=== PATIENT | male | born 1960 | race Caucasian/White ===

== ENCOUNTER 2022-09-03 12:54 | Inpatient (IN) | payer MEDICAID, OTHER ==
[~2022-09-03] VITALS: Ht 177.8 cm; Wt 91.2 kg
[~2022-09-03 12:54] MED LIST: BACI120O TP; BUSP10TA23 PO; FLUO40CA7 PO; HALO100A IM; HALO10TA20 PO; PREG75 PO; QUET300T2 PO; TRIH5TAB4 PO
[2022-09-03] MEDS ORDERED: SODIUM CHLORIDE 0.9% 1,000 ML IV ONE (13:30)
[2022-09-03 13:46] LABS: BASOPHILS % (AUTO) 1.4 % (0.0-2.0); EOSINOPHILS % (AUTO) 3.2 % (1.0-6.0); HEMATOCRIT 42.8 % (41-53); HEMOGLOBIN 14.1 g/dL (13.5-17.5); LYMPHOCYTES # (AUTO) 1.5 K/uL (1.0-4.8); LYMPHOCYTES % (AUTO) 18.4 % (22.0-44.0); MEAN CORPUSCULAR VOLUME 85 fL (80-100); MONOCYTES # (AUTO) 0.9 K/uL (0.1-1.0); MONOCYTES % (AUTO) 11.3 % (2.0-9.0); NEUTROPHILS # (AUTO) 5.2 K/uL (1.8-7.7); NEUTROPHILS % (AUTO) 65.7 % (40.0-70.0); PLATELET COUNT (AUTO) 264 K/uL (150-450); RED BLOOD CELL COUNT(AUTO) 5.05 MIL/uL (4.50-5.90); RED CELL DISTRIBUTION WIDTH 15.7 % (11.5-14.5)
[2022-09-03] MEDS ORDERED: DOXE100C30 PO (13:52)
[2022-09-03] MEDS ORDERED: FOLI-130 PO (13:52)
[2022-09-03] MEDS ORDERED: FINA-27 PO (13:52)
[2022-09-03] MEDS ORDERED: PALI1.5T7 PO (13:52)
[2022-09-03] MEDS ORDERED: CARV6 PO (13:52)
[2022-09-03] MEDS ORDERED: METF-1211 PO (13:52)
[2022-09-03] MEDS ORDERED: BUSP15 PO (13:52)
[2022-09-03] MEDS ORDERED: OMEP20 PO (13:52)
[2022-09-03] MEDS ORDERED: LOSA-382 PO (13:52)
[2022-09-03] MEDS ORDERED: RISP2TAB45 PO (13:52)
[2022-09-03] MEDS ORDERED: INSU100C6 SQ (13:52)
[2022-09-03] MEDS ORDERED: AMLO-257 PO (13:52)
[2022-09-03] MEDS ORDERED: ROSU20TA73 PO (13:52)
[2022-09-03] MEDS ORDERED: FLUT16SP NASAL (13:52)
[2022-09-03] MEDS ORDERED: OXYB5TAB20 PO (13:52)
[2022-09-03] MEDS ORDERED: TAMS-13 PO (13:52)
[2022-09-03 13:58] LABS: ANION GAP 4 mmol/L (8-16); CALCIUM, TOTAL 9.6 mg/dL (8.8-10.5); CARBON DIOXIDE 31 mmol/L (22-29); CHLORIDE 99 mmol/L (98-107); CREATININE 0.96 mg/dL (0.60-1.30); GLOMERULAR FILTR. RATE CALC > 60 mL/min (>60); GLUCOSE,RANDOM 367 mg/dL (70-110); POTASSIUM 4.1 mmol/L (3.5-5.1); SODIUM SERUM 134 mmol/L (136-145); UREA NITROGEN, BLOOD 16 mg/dL (7-18)
[2022-09-03 14:03] LABS: ALANINE AMINOTRANSFERASE 40 U/L (12-78); ALBUMIN 3.6 g/dL (3.4-5.0); ALKALINE PHOSPHATASE 176 U/L (46-116); ASPARTATE AMINOTRANSFERASE 15 U/L (15-37); BILIRUBIN,TOTAL 0.4 mg/dL (0.1-1.0); TOTAL PROTEIN, SERUM 7.7 g/dL (6.4-8.2)
[2022-09-03 14:10] LABS: APPEARANCE,URINE CLEAR (CLEAR); BILIRUBIN,URINE NEGATIVE (NEGATIVE); GLUCOSE, URINE (UA) >=1000 mg/dL (NEGATIVE); KETONES,URINE NEGATIVE (NEGATIVE); LEUKOCYTE ESTERASE ,URINE NEGATIVE (NEGATIVE); NITRATE,URINE NEGATIVE (NEGATIVE); OCCULT BLOOD,URINE NEGATIVE (NEGATIVE); PROTEIN,URINE NEGATIVE (NEGATIVE); SPECIFIC GRAVITIY, URINE 1.007 (1.003-1.030); UROBILINOGEN,URINE <=1.0 mg/dL (<=1.0)
[2022-09-03 14:31] LABS: BACTERIA,URINE None Seen /HPF (None Seen); RBC,URINE None Seen /HPF (0-2); WBC,URINE None Seen /HPF (0-5)
[2022-09-03] MEDS ORDERED: LORazepam 2 MG/ML VIAL IM ONE ×2 (14:45→17:30)
[2022-09-03] MEDS ORDERED: DiphenhydrAMINE HCL 50 MG/ML VIAL IM ONE (14:45)
[2022-09-03] MEDS ORDERED: HALOPERIDOL LACTATE 5 MG/ML VIAL IM ONE (14:45)
[2022-09-03 16:58] LABS: COVID AG,FIA SOURCE NASAL SWAB
[2022-09-03] MEDS ORDERED: DEXTROSE 50%-WATER 25 GM/50 ML SYRINGE IVP PRN (17:00)
[2022-09-03] MEDS: INSULIN LISPRO 100 UNITS/ML SQ PRN ×2 (17:10→21:00)
[2022-09-03 21:07] LABS: GLUCOMETER DEV NAME(LOC) ERT.5; GLUCOSE,POINT OF CARE 204 MG/DL (70-110)
[2022-09-04] MEDS ORDERED: GLUCAGON,HUMAN RECOMBINANT 1 MG VIAL IM PRN (00:15)
[2022-09-04 00:36] VITALS: BP 131/86
[2022-09-04 06:26] LABS: GLUCOMETER DEV NAME(LOC) BV3N.; GLUCOSE,POINT OF CARE 273 MG/DL (70-110)
[2022-09-04] MEDS: INSULIN LISPRO 100 UNITS/ML SQ PRN ×3 (06:29→20:58)
[2022-09-04 08:44] VITALS: BP 134/73
[2022-09-04 09:44] LABS: CHOL/HDL RATIO 1.8 (4.2-7.3); FREE T4 (FREE THYROXINE) 1.27 ng/dL (0.76-1.46); THYROID STIMULATING HORMONE 0.88 uIU/mL (0.36-3.74)
[2022-09-04] MEDS ORDERED: PALIPERIDONE PALMITATE 234 MG/1.5 ML SYRINGE IM SCH (10:30)
[2022-09-04] MEDS ORDERED: INSULIN LISPRO 100 UNITS/ML SQ ONE (11:00)
[2022-09-04 11:08] LABS: AMPHET/METH SCREEN,URINE NEGATIVE (NEGATIVE); BARBITURATE SCREEN, URINE NEGATIVE (NEGATIVE); BENZODIAZEPINES SCREEN,URINE NEGATIVE (NEGATIVE); CANNABINOID SCREEN,URINE NEGATIVE (NEGATIVE); COCAINE SCREEN,URINE NEGATIVE (NEGATIVE); METHADONE SCREEN, URINE NEGATIVE (NEGATIVE); OPIATE SCREEN,URINE NEGATIVE (NEGATIVE)
[2022-09-04 11:11] LABS: GLUCOMETER DEV NAME(LOC) BV3N.; GLUCOSE,POINT OF CARE 584 MG/DL (70-110)
[2022-09-04 11:27] LABS: PHENCYCLIDINE SCREEN,URINE NEGATIVE (NEGATIVE)
[2022-09-04] MEDS: BusPIRone HCL 10 MG TABLET PO SCH ×2 (12:10→16:09)
[2022-09-04 12:46] LABS: GLUCOMETER DEV NAME(LOC) BV3N.; GLUCOSE,POINT OF CARE 474 MG/DL (70-110)
[2022-09-04] MEDS: LORazepam 2 MG TABLET PO PRN (15:53)
[2022-09-04] MEDS: HALOPERIDOL 5 MG TABLET PO PRN (15:53)
[2022-09-04] MEDS: GlipiZIDE 5 MG TABLET PO SCH (16:09)
[2022-09-04 16:31] LABS: GLUCOMETER DEV NAME(LOC) BV3N.; GLUCOSE,POINT OF CARE 358 MG/DL (70-110)
[2022-09-04 20:18] VITALS: BP 127/73
[2022-09-04] MEDS: BusPIRone HCL 15 MG TABLET PO SCH (20:44)
[2022-09-04] MEDS: DOXEPIN HCL 100 MG CAPSULE PO SCH (20:44)
[2022-09-04 21:06] LABS: GLUCOMETER DEV NAME(LOC) BV3N.; GLUCOSE,POINT OF CARE 193 MG/DL (70-110)
[2022-09-05 06:16] LABS: GLUCOMETER DEV NAME(LOC) BV3N.; GLUCOSE,POINT OF CARE 274 MG/DL (70-110)
[2022-09-05] MEDS: GlipiZIDE 5 MG TABLET PO SCH ×2 (06:38→16:18)
[2022-09-05] MEDS: INSULIN LISPRO 100 UNITS/ML SQ PRN ×4 (06:43→20:30)
[2022-09-05] MEDS: BusPIRone HCL 10 MG TABLET PO SCH ×3 (08:17→16:18)
[2022-09-05 09:59] VITALS: BP 136/80
[2022-09-05 11:21] LABS: GLUCOMETER DEV NAME(LOC) BV3N.; GLUCOSE,POINT OF CARE 414 MG/DL (70-110)
[2022-09-05] MEDS ORDERED: INSULIN LISPRO 100 UNITS/ML SQ ONE (11:45)
[2022-09-05 16:41] LABS: GLUCOMETER DEV NAME(LOC) BV3N.; GLUCOSE,POINT OF CARE 279 MG/DL (70-110)
[2022-09-05 20:03] VITALS: BP 140/80
[2022-09-05] MEDS: BusPIRone HCL 15 MG TABLET PO SCH (20:35)
[2022-09-05] MEDS: DOXEPIN HCL 100 MG CAPSULE PO SCH (20:35)
[2022-09-05 20:51] LABS: GLUCOMETER DEV NAME(LOC) BV3N.; GLUCOSE,POINT OF CARE 301 MG/DL (70-110)
[2022-09-05] MEDS: ZOLPIDEM TARTRATE 10 MG TABLET PO PRN (21:33)
[2022-09-06] MEDS: GlipiZIDE 5 MG TABLET PO SCH ×2 (06:22→16:40)
[2022-09-06 06:26] LABS: GLUCOMETER DEV NAME(LOC) BV3N.; GLUCOSE,POINT OF CARE 314 MG/DL (70-110)
[2022-09-06] MEDS: INSULIN LISPRO 100 UNITS/ML SQ PRN ×4 (06:31→21:26)
[2022-09-06 08:12] VITALS: BP 144/76
[2022-09-06] MEDS: BusPIRone HCL 10 MG TABLET PO SCH ×3 (08:33→16:40)
[2022-09-06 11:36] LABS: GLUCOMETER DEV NAME(LOC) BV3N.; GLUCOSE,POINT OF CARE 416 MG/DL (70-110)
[2022-09-06 11:56] LABS: GLUCOMETER DEV NAME(LOC) BV3S.; GLUCOSE,POINT OF CARE 351 MG/DL (70-110)
[2022-09-06 17:11] LABS: GLUCOMETER DEV NAME(LOC) BV3S.; GLUCOSE,POINT OF CARE 354 MG/DL (70-110)
[2022-09-06 20:21] VITALS: BP 145/83
[2022-09-06 20:51] LABS: GLUCOMETER DEV NAME(LOC) BV3N.; GLUCOSE,POINT OF CARE 358 MG/DL (70-110)
[2022-09-06] MEDS: BusPIRone HCL 15 MG TABLET PO SCH (21:23)
[2022-09-06] MEDS: ZOLPIDEM TARTRATE 10 MG TABLET PO PRN (21:24)
[2022-09-06] MEDS: DOXEPIN HCL 100 MG CAPSULE PO SCH (21:24)
[2022-09-07] MEDS: GlipiZIDE 5 MG TABLET PO SCH ×2 (06:16→16:18)
[2022-09-07 06:21] LABS: GLUCOMETER DEV NAME(LOC) BV3N.; GLUCOSE,POINT OF CARE 270 MG/DL (70-110)
[2022-09-07] MEDS: INSULIN LISPRO 100 UNITS/ML SQ PRN ×3 (06:34→20:55)
[2022-09-07 08:43] VITALS: BP 172/64
[2022-09-07] MEDS: BusPIRone HCL 10 MG TABLET PO SCH ×3 (08:43→16:18)
[2022-09-07] MEDS ORDERED: INSULIN LISPRO 100 UNITS/ML SQ ONE (11:30)
[2022-09-07] MEDS ORDERED: GLUCAGON,HUMAN RECOMBINANT 1 MG VIAL IM PRN (11:30)
[2022-09-07 14:31] LABS: GLUCOMETER DEV NAME(LOC) BV3S.; GLUCOSE,POINT OF CARE 569 MG/DL (70-110)
[2022-09-07 14:31] LABS: GLUCOMETER DEV NAME(LOC) BV3S.; GLUCOSE,POINT OF CARE 324 MG/DL (70-110)
[2022-09-07 14:31] LABS: GLUCOMETER DEV NAME(LOC) BV3S.; GLUCOSE,POINT OF CARE 426 MG/DL (70-110)
[2022-09-07] MEDS: INSULIN GLARGINE,HUM.REC.ANLOG 100 UNITS/ML SQ SCH (16:23)
[2022-09-07 17:11] LABS: GLUCOMETER DEV NAME(LOC) BV3N.; GLUCOSE,POINT OF CARE 250 MG/DL (70-110)
[2022-09-07 20:17] VITALS: BP 145/83
[2022-09-07] MEDS: LORazepam 2 MG TABLET PO PRN (20:32)
[2022-09-07 21:31] LABS: GLUCOMETER DEV NAME(LOC) BV3N.; GLUCOSE,POINT OF CARE 358 MG/DL (70-110)
[2022-09-07] MEDS: BusPIRone HCL 15 MG TABLET PO SCH (21:38)
[2022-09-07] MEDS: DOXEPIN HCL 100 MG CAPSULE PO SCH (21:38)
[2022-09-08] MEDS: GlipiZIDE 5 MG TABLET PO SCH ×2 (06:31→16:32)
[2022-09-08 06:32] LABS: GLUCOMETER DEV NAME(LOC) BV3N.; GLUCOSE,POINT OF CARE 298 MG/DL (70-110)
[2022-09-08] MEDS: INSULIN LISPRO 100 UNITS/ML SQ PRN ×4 (06:34→20:37)
[2022-09-08 08:33] VITALS: BP 133/84
[2022-09-08] MEDS: BusPIRone HCL 10 MG TABLET PO SCH ×3 (08:38→16:32)
[2022-09-08] MEDS: INSULIN GLARGINE,HUM.REC.ANLOG 100 UNITS/ML SQ SCH ×2 (08:44→17:10)
[2022-09-08 11:51] LABS: GLUCOMETER DEV NAME(LOC) BV3N.; GLUCOSE,POINT OF CARE 362 MG/DL (70-110)
[2022-09-08 17:01] LABS: GLUCOMETER DEV NAME(LOC) BV3N.; GLUCOSE,POINT OF CARE 412 MG/DL (70-110)
[2022-09-08 20:03] VITALS: BP 140/78
[2022-09-08] MEDS: BusPIRone HCL 15 MG TABLET PO SCH (20:04)
[2022-09-08] MEDS: DOXEPIN HCL 100 MG CAPSULE PO SCH (20:04)
[2022-09-08 20:40] LABS: GLUCOMETER DEV NAME(LOC) BV3N.; GLUCOSE,POINT OF CARE 335 MG/DL (70-110)
[2022-09-08] MEDS: ZOLPIDEM TARTRATE 10 MG TABLET PO PRN (22:40)
[2022-09-09] MEDS: GlipiZIDE 5 MG TABLET PO SCH ×2 (06:41→16:50)
[2022-09-09] MEDS: INSULIN LISPRO 100 UNITS/ML SQ PRN ×3 (06:46→16:53)
[2022-09-09 07:06] LABS: GLUCOMETER DEV NAME(LOC) BV3N.; GLUCOSE,POINT OF CARE 313 MG/DL (70-110)
[2022-09-09 08:17] VITALS: BP 134/89
[2022-09-09] MEDS: BusPIRone HCL 10 MG TABLET PO SCH ×3 (08:17→16:50)
[2022-09-09] MEDS: INSULIN GLARGINE,HUM.REC.ANLOG 100 UNITS/ML SQ SCH ×2 (08:22→16:53)
[2022-09-09 11:21] LABS: GLUCOMETER DEV NAME(LOC) BV3N.; GLUCOSE,POINT OF CARE 411 MG/DL (70-110)
[2022-09-09] MEDS: LORazepam 2 MG TABLET PO PRN (16:50)
[2022-09-09] MEDS: HALOPERIDOL 5 MG TABLET PO PRN (16:50)
[2022-09-09 17:11] LABS: GLUCOMETER DEV NAME(LOC) BV3N.; GLUCOSE,POINT OF CARE 366 MG/DL (70-110)
[2022-09-09] MEDS: BusPIRone HCL 15 MG TABLET PO SCH (20:15)
[2022-09-09] MEDS: ZOLPIDEM TARTRATE 10 MG TABLET PO PRN (20:15)
[2022-09-09] MEDS: DOXEPIN HCL 100 MG CAPSULE PO SCH (20:15)
[2022-09-09 20:16] VITALS: BP 142/84
[2022-09-09] MEDS ORDERED: INSULIN LISPRO 100 UNITS/ML SQ ONE (20:30)
[2022-09-09 20:40] LABS: GLUCOMETER DEV NAME(LOC) BV3N.; GLUCOSE,POINT OF CARE 468 MG/DL (70-110)
[2022-09-10] MEDS: GlipiZIDE 5 MG TABLET PO SCH ×2 (06:08→16:26)
[2022-09-10 06:21] LABS: GLUCOMETER DEV NAME(LOC) BV3N.; GLUCOSE,POINT OF CARE 283 MG/DL (70-110)
[2022-09-10] MEDS: INSULIN LISPRO 100 UNITS/ML SQ PRN ×3 (06:39→16:44)
[2022-09-10] MEDS: BusPIRone HCL 10 MG TABLET PO SCH ×3 (08:28→16:26)
[2022-09-10] MEDS: INSULIN GLARGINE,HUM.REC.ANLOG 100 UNITS/ML SQ SCH ×2 (08:33→16:43)
[2022-09-10 08:38] VITALS: BP 122/75
[2022-09-10] MEDS: RisperiDONE 2 MG TABLET PO SCH ×2 (10:26→20:09)
[2022-09-10 11:27] LABS: GLUCOMETER DEV NAME(LOC) BV3N.; GLUCOSE,POINT OF CARE 376 MG/DL (70-110)
[2022-09-10] MEDS: HALOPERIDOL 5 MG TABLET PO PRN (16:26)
[2022-09-10] MEDS: LORazepam 2 MG TABLET PO PRN (16:26)
[2022-09-10 17:06] LABS: GLUCOMETER DEV NAME(LOC) BV3N.; GLUCOSE,POINT OF CARE 361 MG/DL (70-110)
[2022-09-10 18:32] LABS: GLUCOMETER DEV NAME(LOC) POC.BV
[2022-09-10] MEDS: ZOLPIDEM TARTRATE 10 MG TABLET PO PRN (20:09)
[2022-09-10] MEDS: BusPIRone HCL 15 MG TABLET PO SCH (20:09)
[2022-09-10] MEDS: DOXEPIN HCL 100 MG CAPSULE PO SCH (20:10)
[2022-09-10 20:15] VITALS: BP 150/85
[2022-09-10] MEDS ORDERED: INSULIN LISPRO 100 UNITS/ML SQ ONE (20:30)
[2022-09-10 20:40] LABS: GLUCOMETER DEV NAME(LOC) BV3N.; GLUCOSE,POINT OF CARE 421 MG/DL (70-110)
[2022-09-11] MEDS: GlipiZIDE 5 MG TABLET PO SCH ×2 (06:25→16:27)
[2022-09-11 06:26] LABS: GLUCOMETER DEV NAME(LOC) BV3N.; GLUCOSE,POINT OF CARE 369 MG/DL (70-110)
[2022-09-11] MEDS: INSULIN LISPRO 100 UNITS/ML SQ PRN ×4 (06:27→20:28)
[2022-09-11] MEDS: BusPIRone HCL 10 MG TABLET PO SCH ×3 (08:53→16:27)
[2022-09-11] MEDS: RisperiDONE 2 MG TABLET PO SCH ×2 (08:53→20:48)
[2022-09-11] MEDS: INSULIN GLARGINE,HUM.REC.ANLOG 100 UNITS/ML SQ SCH ×2 (08:56→16:41)
[2022-09-11 09:38] VITALS: BP 134/89
[2022-09-11 11:22] LABS: GLUCOMETER DEV NAME(LOC) BV3N.; GLUCOSE,POINT OF CARE 343 MG/DL (70-110)
[2022-09-11] MEDS: HALOPERIDOL 5 MG TABLET PO PRN (16:31)
[2022-09-11 17:06] LABS: GLUCOMETER DEV NAME(LOC) BV3N.; GLUCOSE,POINT OF CARE 350 MG/DL (70-110)
[2022-09-11 20:26] LABS: GLUCOMETER DEV NAME(LOC) BV3N.; GLUCOSE,POINT OF CARE 308 MG/DL (70-110)
[2022-09-11 20:34] VITALS: BP 151/86
[2022-09-11] MEDS: BusPIRone HCL 15 MG TABLET PO SCH (20:48)
[2022-09-11] MEDS: DOXEPIN HCL 100 MG CAPSULE PO SCH (20:48)
[2022-09-12 06:27] LABS: GLUCOMETER DEV NAME(LOC) BV3N.; GLUCOSE,POINT OF CARE 282 MG/DL (70-110)
[2022-09-12] MEDS: GlipiZIDE 5 MG TABLET PO SCH ×2 (06:44→16:32)
[2022-09-12] MEDS: INSULIN LISPRO 100 UNITS/ML SQ PRN ×4 (06:46→20:36)
[2022-09-12 08:20] VITALS: BP 128/76
[2022-09-12] MEDS: RisperiDONE 2 MG TABLET PO SCH ×2 (08:42→20:37)
[2022-09-12] MEDS: BusPIRone HCL 10 MG TABLET PO SCH ×3 (08:42→16:32)
[2022-09-12] MEDS: INSULIN GLARGINE,HUM.REC.ANLOG 100 UNITS/ML SQ SCH ×2 (08:45→16:39)
[2022-09-12 11:51] LABS: GLUCOMETER DEV NAME(LOC) BV3N.; GLUCOSE,POINT OF CARE 315 MG/DL (70-110)
[2022-09-12 16:31] LABS: GLUCOMETER DEV NAME(LOC) BV3N.; GLUCOSE,POINT OF CARE 373 MG/DL (70-110)
[2022-09-12] MEDS: LORazepam 2 MG TABLET PO PRN (19:18)
[2022-09-12 20:26] LABS: GLUCOMETER DEV NAME(LOC) BV3N.; GLUCOSE,POINT OF CARE 354 MG/DL (70-110)
[2022-09-12] MEDS: BusPIRone HCL 15 MG TABLET PO SCH (20:37)
[2022-09-12] MEDS: DOXEPIN HCL 100 MG CAPSULE PO SCH (20:38)
[2022-09-12 20:48] VITALS: BP 143/81
[2022-09-13] MEDS: GlipiZIDE 5 MG TABLET PO SCH ×2 (06:16→16:24)
[2022-09-13 06:31] LABS: GLUCOMETER DEV NAME(LOC) BV3N.; GLUCOSE,POINT OF CARE 268 MG/DL (70-110)
[2022-09-13] MEDS: INSULIN LISPRO 100 UNITS/ML SQ PRN ×4 (06:32→20:32)
[2022-09-13 08:18] VITALS: BP 142/87
[2022-09-13] MEDS: BusPIRone HCL 10 MG TABLET PO SCH ×3 (09:08→16:24)
[2022-09-13] MEDS: RisperiDONE 2 MG TABLET PO SCH ×2 (09:08→20:31)
[2022-09-13] MEDS: INSULIN GLARGINE,HUM.REC.ANLOG 100 UNITS/ML SQ SCH ×2 (09:10→16:28)
[2022-09-13 12:01] LABS: GLUCOMETER DEV NAME(LOC) BV3N.; GLUCOSE,POINT OF CARE 348 MG/DL (70-110)
[2022-09-13] MEDS: HALOPERIDOL 5 MG TABLET PO PRN (16:24)
[2022-09-13] MEDS: LORazepam 2 MG TABLET PO PRN (16:25)
[2022-09-13 16:41] LABS: GLUCOMETER DEV NAME(LOC) BV3N.; GLUCOSE,POINT OF CARE 311 MG/DL (70-110)
[2022-09-13 20:25] VITALS: BP 112/85
[2022-09-13] MEDS: ZOLPIDEM TARTRATE 10 MG TABLET PO PRN (20:31)
[2022-09-13] MEDS: DOXEPIN HCL 100 MG CAPSULE PO SCH (20:31)
[2022-09-13] MEDS: BusPIRone HCL 15 MG TABLET PO SCH (20:31)
[2022-09-13 20:45] LABS: GLUCOMETER DEV NAME(LOC) BV3N.; GLUCOSE,POINT OF CARE 318 MG/DL (70-110)
[2022-09-14] MEDS: GlipiZIDE 5 MG TABLET PO SCH ×2 (06:36→16:48)
[2022-09-14 06:51] LABS: GLUCOMETER DEV NAME(LOC) BV3N.; GLUCOSE,POINT OF CARE 98 MG/DL (70-110)
[2022-09-14] MEDS: BusPIRone HCL 10 MG TABLET PO SCH ×3 (08:19→16:48)
[2022-09-14] MEDS: RisperiDONE 2 MG TABLET PO SCH ×2 (08:19→20:13)
[2022-09-14] MEDS: INSULIN GLARGINE,HUM.REC.ANLOG 100 UNITS/ML SQ SCH ×2 (08:28→16:49)
[2022-09-14 08:42] VITALS: BP 149/79
[2022-09-14] MEDS: INSULIN LISPRO 100 UNITS/ML SQ PRN ×3 (11:08→20:24)
[2022-09-14 11:21] LABS: GLUCOMETER DEV NAME(LOC) BV3N.; GLUCOSE,POINT OF CARE 395 MG/DL (70-110)
[2022-09-14 17:01] LABS: GLUCOMETER DEV NAME(LOC) BV3N.; GLUCOSE,POINT OF CARE 259 MG/DL (70-110)
[2022-09-14] MEDS: HALOPERIDOL 5 MG TABLET PO PRN (18:08)
[2022-09-14] MEDS: LORazepam 2 MG TABLET PO PRN (18:08)
[2022-09-14 20:13] VITALS: BP 145/82
[2022-09-14] MEDS: BusPIRone HCL 15 MG TABLET PO SCH (20:13)
[2022-09-14] MEDS: DOXEPIN HCL 100 MG CAPSULE PO SCH (20:13)
[2022-09-14 21:41] LABS: GLUCOMETER DEV NAME(LOC) BV3N.; GLUCOSE,POINT OF CARE 272 MG/DL (70-110)
[2022-09-15] MEDS: GlipiZIDE 5 MG TABLET PO SCH ×2 (06:16→16:39)
[2022-09-15 06:31] LABS: GLUCOMETER DEV NAME(LOC) BV3N.; GLUCOSE,POINT OF CARE 106 MG/DL (70-110)
[2022-09-15 08:10] VITALS: BP 123/75
[2022-09-15] MEDS: BusPIRone HCL 10 MG TABLET PO SCH ×3 (09:30→16:39)
[2022-09-15] MEDS: RisperiDONE 2 MG TABLET PO SCH ×2 (09:30→20:29)
[2022-09-15] MEDS: INSULIN GLARGINE,HUM.REC.ANLOG 100 UNITS/ML SQ SCH ×2 (09:37→16:51)
[2022-09-15 10:25] LABS: GLUCOMETER DEV NAME(LOC) BV3N.; GLUCOSE,POINT OF CARE 272 MG/DL (70-110)
[2022-09-15] MEDS: INSULIN LISPRO 100 UNITS/ML SQ PRN ×2 (11:58→20:36)
[2022-09-15] MEDS: LORazepam 2 MG TABLET PO PRN ×2 (13:05→17:22)
[2022-09-15 13:30] LABS: GLUCOMETER DEV NAME(LOC) BV3N.; GLUCOSE,POINT OF CARE 319 MG/DL (70-110)
[2022-09-15] MEDS ORDERED: INSULIN LISPRO 100 UNITS/ML SQ ONE (17:15)
[2022-09-15 17:41] LABS: GLUCOMETER DEV NAME(LOC) BV3N.; GLUCOSE,POINT OF CARE 424 MG/DL (70-110)
[2022-09-15 20:14] VITALS: BP 133/86
[2022-09-15] MEDS: DOXEPIN HCL 100 MG CAPSULE PO SCH (20:29)
[2022-09-15] MEDS: BusPIRone HCL 15 MG TABLET PO SCH (20:29)
[2022-09-15] MEDS: ZOLPIDEM TARTRATE 10 MG TABLET PO PRN (20:30)
[2022-09-15 20:31] LABS: GLUCOMETER DEV NAME(LOC) BV3N.; GLUCOSE,POINT OF CARE 327 MG/DL (70-110)
[2022-09-16] MEDS: INSULIN LISPRO 100 UNITS/ML SQ PRN ×2 (06:25→10:49)
[2022-09-16] MEDS: GlipiZIDE 5 MG TABLET PO SCH (06:28)
[2022-09-16 06:31] LABS: GLUCOMETER DEV NAME(LOC) BV3N.; GLUCOSE,POINT OF CARE 300 MG/DL (70-110)
[2022-09-16] MEDS: BusPIRone HCL 10 MG TABLET PO SCH ×2 (08:22→12:01)
[2022-09-16] MEDS: RisperiDONE 2 MG TABLET PO SCH (08:22)
[2022-09-16 08:31] LABS: GLUCOMETER DEV NAME(LOC) BV3N.; GLUCOSE,POINT OF CARE 219 MG/DL (70-110)
[2022-09-16] MEDS ORDERED: INSULIN GLARGINE,HUM.REC.ANLOG 100 UNITS/ML SQ SCH (09:00)
[2022-09-16 09:02] VITALS: BP 151/81
[2022-09-16] MEDS ORDERED: GLIP5TAB12 PO (10:34)
[2022-09-16] MEDS ORDERED: PALI234D IM (10:34)
[2022-09-16] MEDS ORDERED: INSLAN SQ ×2 (10:34→12:27)
[2022-09-16 10:51] LABS: GLUCOMETER DEV NAME(LOC) BV3N.; GLUCOSE,POINT OF CARE 325 MG/DL (70-110)
[2022-09-16] MEDS: LORazepam 2 MG TABLET PO PRN (11:35)
[2022-09-16] MEDS ORDERED: GLIP5TAB11 PO (12:26)
[2022-09-17] MEDS ORDERED: BUSP10TA23 PO (00:07)
[2022-09-17] MEDS ORDERED: BUSP15 PO (00:07)
[2022-09-17] MEDS ORDERED: PALI234D IM (00:07)
[2022-09-17] MEDS ORDERED: RISP2TAB45 PO (00:07)
[2022-09-17] MEDS ORDERED: DOXE100C30 PO (00:07)
== END 2022-09-16 13:00 | disposition home or self-care (01) | DRG 750 ==
LOC: EMS 13:00 → B3A 20:52
PROVIDERS: ADMIT Psychiatry & Neurology Psychiatry; ATTEND Psychiatry & Neurology Psychiatry
DX: F20.0 Paranoid schizophrenia (principal); E87.1 Hypo-osmolality and hyponatremia; E11.65 Type 2 diabetes mellitus with hyperglycemia; Z20.822 Contact with and (suspected) exposure to COVID-19; E78.5 Hyperlipidemia, unspecified; G47.00 Insomnia, unspecified; I10 Essential (primary) hypertension; K21.9 Gastro-esophageal reflux disease without esophagitis; N40.1 Benign prostatic hyperplasia with lower urinary tract symptoms; R32 Unspecified urinary incontinence; Z79.899 Other long term (current) drug therapy; Z83.3 Family history of diabetes mellitus
CPT/HCPCS: 80053; 80061; 80307; 81001; 81003; 82962; 84439; 84443; 85025; 99285; J1200; J1630; J1815; J2060; J7030

== ENCOUNTER 2024-02-18 20:35 | Emergency (ER) | payer MEDICAID, OTHER ==
[~2024-02-18] VITALS: Ht 177.8 cm; Wt 89.1 kg
[~2024-02-18 20:35] MED LIST changes: -BACI120O TP; +BUSP15 PO; +DOXE100C30 PO; -FLUO40CA7 PO; +GLIP5TAB15 PO; -HALO100A IM; -HALO10TA20 PO; +INSLAN SQ; +PALI234D IM; -PREG75 PO; -QUET300T2 PO; +RISP2TAB45 PO; -TRIH5TAB4 PO
[2024-02-18 20:52] VITALS: BP 145/93; PULSE 89; RESP 16; TEMP 97.8
[2024-02-18 21:45] LABS: APPEARANCE,URINE HAZY (CLEAR); BILIRUBIN,URINE NEGATIVE (NEGATIVE); COLOR,URINE LIGHT YELLOW (YELLOW); GLUCOSE, URINE (UA) 150-200 mg/dL (NEGATIVE); KETONES,URINE NEGATIVE (NEGATIVE); LEUKOCYTE ESTERASE ,URINE NEGATIVE (NEGATIVE); NITRATE,URINE NEGATIVE (NEGATIVE); OCCULT BLOOD,URINE NEGATIVE (NEGATIVE); PROTEIN,URINE NEGATIVE (NEGATIVE); SPECIFIC GRAVITIY, URINE 1.012 (1.003-1.030); UROBILINOGEN,URINE <=1.0 mg/dL (<=1.0)
[2024-02-18 21:50] LABS: ALCOHOL, URINE DRUG SCREEN NEGATIVE (NEGATIVE); AMPHET/METH SCREEN,URINE NEGATIVE (NEGATIVE); BARBITURATE SCREEN, URINE NEGATIVE (NEGATIVE); BENZODIAZEPINES SCREEN,URINE NEGATIVE (NEGATIVE); CANNABINOID SCREEN,URINE NEGATIVE (NEGATIVE); COCAINE SCREEN,URINE NEGATIVE (NEGATIVE); METHADONE SCREEN, URINE NEGATIVE (NEGATIVE); OPIATE SCREEN,URINE NEGATIVE (NEGATIVE); PHENCYCLIDINE SCREEN,URINE NEGATIVE (NEGATIVE)
[2024-02-18 22:09] LABS: BASOPHILS % (AUTO) 0.9 % (0.0-2.0); EOSINOPHILS % (AUTO) 1.5 % (1.0-6.0); HEMATOCRIT 40.3 % (41-53); HEMOGLOBIN 13.5 g/dL (13.5-17.5); LYMPHOCYTES # (AUTO) 2.2 K/uL (1.0-4.8); LYMPHOCYTES % (AUTO) 26.6 % (22.0-44.0); MEAN CORPUSCULAR HEMOGLOBIN 28.7 pg (26.0-34.0); MEAN CORPUSCULAR HGB CONC 33.5 G/dL (31.0-37.0); MEAN CORPUSCULAR VOLUME 86 fL (80-100); MONOCYTES # (AUTO) 1.1 K/uL (0.1-1.0); MONOCYTES % (AUTO) 13.6 % (2.0-9.0); NEUTROPHILS # (AUTO) 4.7 K/uL (1.8-7.7); NEUTROPHILS % (AUTO) 57.4 % (40.0-70.0); PLATELET COUNT (AUTO) 205 K/uL (150-450); RED BLOOD CELL COUNT(AUTO) 4.71 MIL/uL (4.50-5.90); RED CELL DISTRIBUTION WIDTH 15.6 % (11.5-14.5); WHITE BLOOD COUNT (AUTO) 8.1 K/uL (4.5-11.0)
[2024-02-18 22:24] LABS: ANION GAP 8 mmol/L (8-16); CALCIUM, TOTAL 9.5 mg/dL (8.8-10.5); CARBON DIOXIDE 25 mmol/L (22-29); CHLORIDE 105 mmol/L (98-107); CREATININE 0.82 mg/dL (0.60-1.30); GLOMERULAR FILTR. RATE CALC > 60 mL/min (>60); GLUCOSE,RANDOM 121 mg/dL (70-110); POTASSIUM 3.3 mmol/L (3.5-5.1); SODIUM SERUM 138 mmol/L (136-145); UREA NITROGEN, BLOOD 12 mg/dL (7-18)
[2024-02-18] MEDS: CEPHALEXIN MONOHYDRATE 500 MG CAPSULE PO ONE (22:29)
[2024-02-18 22:32] LABS: ALCOHOL, BLOOD (SERUM) < 3 mg/dL (0-10)
[2024-02-18 23:14] LABS: AMORPHOUS SEDIMENT,UR Few /LPF (None Seen); BACTERIA,URINE None Seen /HPF (None Seen); RBC,URINE None Seen /HPF (0-2); SQUAMOUS EPITHELIAL CELL,UR None Seen /LPF (None Seen); WBC,URINE None Seen /HPF (0-5)
== END 2024-02-19 01:06 | disposition home or self-care (01) ==
LOC: EMS 20:35
DX: F20.9 Schizophrenia, unspecified (principal); E11.9 Type 2 diabetes mellitus without complications; I10 Essential (primary) hypertension
CPT/HCPCS: 99283; 80048; 82962; 85025; 36415; 80307; 81001; G0480; 81003

== ENCOUNTER 2024-09-12 20:37 | Inpatient (IN) | payer MEDICAID, OTHER ==
[~2024-09-12] VITALS: Ht 177.8 cm; Wt 79.2 kg
[2024-09-12 21:50] LABS: BASOPHILS % (AUTO) 0.5 % (0.0-2.0); EOSINOPHILS % (AUTO) 0.8 % (1.0-6.0); HEMATOCRIT 45.5 % (41-53); HEMOGLOBIN 15.2 g/dL (13.5-17.5); LYMPHOCYTES % (AUTO) 6.3 % (22.0-44.0); MEAN CORPUSCULAR HEMOGLOBIN 29.5 pg (26.0-34.0); MEAN CORPUSCULAR HGB CONC 33.5 G/dL (31.0-37.0); MEAN CORPUSCULAR VOLUME 88 fL (80-100); MONOCYTES # (AUTO) 1.2 K/uL (0.1-1.0); MONOCYTES % (AUTO) 7.5 % (2.0-9.0); NEUTROPHILS % (AUTO) 84.9 % (40.0-70.0); PLATELET COUNT (AUTO) 279 K/uL (150-450); RED BLOOD CELL COUNT(AUTO) 5.16 MIL/uL (4.50-5.90); RED CELL DISTRIBUTION WIDTH 14.4 % (11.5-14.5); WHITE BLOOD COUNT (AUTO) 16.5 K/uL (4.5-11.0)
[2024-09-12 21:58] LABS: ANION GAP 11 mmol/L (8-16); CALCIUM, TOTAL 9.9 mg/dL (8.8-10.5); CARBON DIOXIDE 24 mmol/L (22-29); CHLORIDE 97 mmol/L (98-107); CREATININE 0.92 mg/dL (0.60-1.30); GLOMERULAR FILTR. RATE CALC > 60 mL/min (>60); GLUCOSE,RANDOM 133 mg/dL (70-110); POTASSIUM 3.4 mmol/L (3.5-5.1); SODIUM SERUM 132 mmol/L (136-145); UREA NITROGEN, BLOOD 13 mg/dL (7-18)
[2024-09-12 22:10] LABS: COVID AG,FIA SOURCE NASAL SWAB
[2024-09-12 22:11] LABS: ALCOHOL, BLOOD (SERUM) < 3 mg/dL (0-10)
[2024-09-12 22:31] LABS: SARS-COV2 (COVID) ANTIGEN,FIA Negative (Negative)
[2024-09-12 22:41] LABS: GLUCOMETER DEV NAME(LOC) ER.7; GLUCOSE,POINT OF CARE 134 MG/DL (70-110)
[2024-09-12] MEDS: POTASSIUM CHLORIDE 20 MEQ ER TABLET PO ONE (23:20)
[2024-09-13 06:09] VITALS: BP 99/54; PULSE 116; RESP 16; TEMP 96.9; O2SAT 97
[2024-09-13 06:21] VITALS: BP 99/54; PULSE 116; RESP 16
[2024-09-13] MEDS ORDERED: PNEUMOCOCCAL VACCINE POLYVALENT 0.5 ML SYRINGE [PPSV23] IM. ONE ×2 (06:30)
[2024-09-13] MEDS ORDERED: INFLUENZA VIRUS VACCINE TVS (6MO+) 2024-25/PF 45 MCG/0.5 ML SYRINGE IM. ONE (06:30)
[2024-09-13 06:36] LABS: GLUCOMETER DEV NAME(LOC) BV2S.; GLUCOSE,POINT OF CARE 249 MG/DL (70-110)
[2024-09-13 08:29] VITALS: BP 103/60; PULSE 100; RESP 18; TEMP 97.1; O2SAT 98
[2024-09-13] MEDS: RisperiDONE 1 MG TABLET PO SCH (16:14)
[2024-09-13] MEDS: DIVALPROEX SODIUM 500 MG DR TABLET PO SCH (16:14)
[2024-09-13 20:35] VITALS: RESP 18
[2024-09-14 08:49] VITALS: BP 108/67; PULSE 101; RESP 18; TEMP 98.4; O2SAT 96
[2024-09-14 09:15] LABS: BASOPHILS % (AUTO) 0.9 % (0.0-2.0); EOSINOPHILS % (AUTO) 1.9 % (1.0-6.0); HEMATOCRIT 39.9 % (41-53); HEMOGLOBIN 13.7 g/dL (13.5-17.5); LYMPHOCYTES # (AUTO) 1.2 K/uL (1.0-4.8); LYMPHOCYTES % (AUTO) 18.5 % (22.0-44.0); MEAN CORPUSCULAR HEMOGLOBIN 30.4 pg (26.0-34.0); MEAN CORPUSCULAR HGB CONC 34.5 G/dL (31.0-37.0); MEAN CORPUSCULAR VOLUME 88 fL (80-100); MONOCYTES # (AUTO) 1.2 K/uL (0.1-1.0); MONOCYTES % (AUTO) 17.7 % (2.0-9.0); NEUTROPHILS # (AUTO) 4.1 K/uL (1.8-7.7); PLATELET COUNT (AUTO) 202 K/uL (150-450); RED BLOOD CELL COUNT(AUTO) 4.52 MIL/uL (4.50-5.90); RED CELL DISTRIBUTION WIDTH 14.5 % (11.5-14.5); WHITE BLOOD COUNT (AUTO) 6.7 K/uL (4.5-11.0)
[2024-09-14 09:39] LABS: HEMOGLOBIN A1C 6.1 % (3.8-5.6)
[2024-09-14 10:01] LABS: ALANINE AMINOTRANSFERASE 22 U/L (12-78); ALBUMIN 2.7 g/dL (3.4-5.0); ALKALINE PHOSPHATASE 70 U/L (46-116); ANION GAP 10 mmol/L (8-16); ASPARTATE AMINOTRANSFERASE 14 U/L (15-37); CALCIUM, TOTAL 8.3 mg/dL (8.8-10.5); CARBON DIOXIDE 23 mmol/L (22-29); CHLORIDE 101 mmol/L (98-107); CREATININE 0.86 mg/dL (0.60-1.30); FREE T4 (FREE THYROXINE) 1.52 ng/dL (0.76-1.46); GLOMERULAR FILTR. RATE CALC > 60 mL/min (>60); POTASSIUM 3.4 mmol/L (3.5-5.1); SODIUM SERUM 134 mmol/L (136-145); THYROID STIMULATING HORMONE 0.82 uIU/mL (0.36-3.74)
[2024-09-14 10:24] LABS: BILIRUBIN,TOTAL 0.6 mg/dL (0.1-1.0); GLUCOSE,RANDOM 180 mg/dL (70-110); TOTAL PROTEIN, SERUM 5.5 g/dL (6.4-8.2); UREA NITROGEN, BLOOD 27 mg/dL (7-18)
[2024-09-14] MEDS ORDERED: GLUCAGON,HUMAN RECOMBINANT 1 MG VIAL IM PRN (11:00)
[2024-09-14] MEDS: INSULIN LISPRO 100 UNITS/ML SQ PRN (11:46)
[2024-09-14 13:09] LABS: C.DIFF GDH ANTIGEN, Stool Negative (Negative); C.DIFF TOXINS A&B, Stool Negative (Negative)
[2024-09-14] MEDS: LOPERAMIDE HCL 2 MG CAPSULE PO PRN (17:59)
[2024-09-14] MEDS: GlipiZIDE 5 MG TABLET PO SCH (18:00)
[2024-09-14] MEDS: INSULIN GLARGINE,HUM.REC.ANLOG 100 UNITS/ML SQ SCH (18:09)
[2024-09-14 18:35] LABS: GLUCOMETER DEV NAME(LOC) BV2S.; GLUCOSE,POINT OF CARE 211 MG/DL (70-110)
[2024-09-14 18:35] LABS: GLUCOMETER DEV NAME(LOC) BV2S.; GLUCOSE,POINT OF CARE 243 MG/DL (70-110)
[2024-09-14 20:30] VITALS: BP 135/80; PULSE 110; RESP 18; TEMP 97.3; O2SAT 100
[2024-09-14] MEDS: ZOLPIDEM TARTRATE 10 MG TABLET PO PRN (21:02)
[2024-09-15 06:25] LABS: GLUCOMETER DEV NAME(LOC) BV2S.; GLUCOSE,POINT OF CARE 135 MG/DL (70-110)
[2024-09-15 08:39] LABS: BASOPHILS % (AUTO) 0.9 % (0.0-2.0); EOSINOPHILS % (AUTO) 2.5 % (1.0-6.0); HEMATOCRIT 38.5 % (41-53); HEMOGLOBIN 13.5 g/dL (13.5-17.5); LYMPHOCYTES # (AUTO) 1.7 K/uL (1.0-4.8); LYMPHOCYTES % (AUTO) 22.8 % (22.0-44.0); MEAN CORPUSCULAR HEMOGLOBIN 30.6 pg (26.0-34.0); MEAN CORPUSCULAR HGB CONC 35.1 G/dL (31.0-37.0); MEAN CORPUSCULAR VOLUME 87 fL (80-100); MONOCYTES # (AUTO) 1.1 K/uL (0.1-1.0); MONOCYTES % (AUTO) 15.1 % (2.0-9.0); NEUTROPHILS # (AUTO) 4.3 K/uL (1.8-7.7); NEUTROPHILS % (AUTO) 58.7 % (40.0-70.0); PLATELET COUNT (AUTO) 218 K/uL (150-450); RED BLOOD CELL COUNT(AUTO) 4.42 MIL/uL (4.50-5.90); RED CELL DISTRIBUTION WIDTH 14.7 % (11.5-14.5); WHITE BLOOD COUNT (AUTO) 7.4 K/uL (4.5-11.0)
[2024-09-15 08:51] LABS: ANION GAP 8 mmol/L (8-16); CALCIUM, TOTAL 8.3 mg/dL (8.8-10.5); CARBON DIOXIDE 25 mmol/L (22-29); CHLORIDE 104 mmol/L (98-107); CREATININE 0.71 mg/dL (0.60-1.30); GLOMERULAR FILTR. RATE CALC > 60 mL/min (>60); GLUCOSE,RANDOM 150 mg/dL (70-110); POTASSIUM 3.6 mmol/L (3.5-5.1); SODIUM SERUM 137 mmol/L (136-145); UREA NITROGEN, BLOOD 11 mg/dL (7-18)
[2024-09-15 08:58] VITALS: BP 157/74; PULSE 98; RESP 17; TEMP 97.9; O2SAT 95
[2024-09-15 12:25] LABS: GLUCOMETER DEV NAME(LOC) BV2S.; GLUCOSE,POINT OF CARE 255 MG/DL (70-110)
[2024-09-15 12:25] LABS: GLUCOMETER DEV NAME(LOC) BV2S.; GLUCOSE,POINT OF CARE 236 MG/DL (70-110)
[2024-09-15 17:10] LABS: GLUCOMETER DEV NAME(LOC) BV2S.; GLUCOSE,POINT OF CARE 211 MG/DL (70-110)
[2024-09-15 20:00] VITALS: RESP 16
[2024-09-15 20:45] LABS: GLUCOMETER DEV NAME(LOC) BV2S.; GLUCOSE,POINT OF CARE 241 MG/DL (70-110)
[2024-09-16 06:46] LABS: GLUCOMETER DEV NAME(LOC) BV2S.; GLUCOSE,POINT OF CARE 173 MG/DL (70-110)
[2024-09-16 08:48] VITALS: BP 169/84; PULSE 111; RESP 17; TEMP 97.2; O2SAT 98
[2024-09-16 08:54] LABS: APPEARANCE,URINE CLEAR (CLEAR); BILIRUBIN,URINE NEGATIVE (NEGATIVE); COLOR,URINE LIGHT YELLOW (YELLOW); GLUCOSE, URINE (UA) >=1000 mg/dL (NEGATIVE); KETONES,URINE TRACE mg/dL (NEGATIVE); LEUKOCYTE ESTERASE ,URINE NEGATIVE (NEGATIVE); NITRATE,URINE POSITIVE (NEGATIVE); OCCULT BLOOD,URINE NEGATIVE (NEGATIVE); PROTEIN,URINE NEGATIVE (NEGATIVE); SPECIFIC GRAVITIY, URINE 1.008 (1.003-1.030); UROBILINOGEN,URINE <=1.0 mg/dL (<=1.0)
[2024-09-16 09:06] LABS: BACTERIA,URINE Moderate /HPF (None Seen); RBC,URINE 0-2 /HPF (0-2); SQUAMOUS EPITHELIAL CELL,UR Rare /LPF (None Seen)
[2024-09-16 09:15] LABS: ALCOHOL, URINE DRUG SCREEN NEGATIVE (NEGATIVE); AMPHET/METH SCREEN,URINE NEGATIVE (NEGATIVE); BARBITURATE SCREEN, URINE NEGATIVE (NEGATIVE); BENZODIAZEPINES SCREEN,URINE NEGATIVE (NEGATIVE); CANNABINOID SCREEN,URINE NEGATIVE (NEGATIVE); COCAINE SCREEN,URINE NEGATIVE (NEGATIVE); METHADONE SCREEN, URINE NEGATIVE (NEGATIVE); PHENCYCLIDINE SCREEN,URINE NEGATIVE (NEGATIVE)
[2024-09-16 09:22] LABS: OPIATE SCREEN,URINE NEGATIVE (NEGATIVE)
[2024-09-16 10:26] LABS: GLUCOMETER DEV NAME(LOC) BV2S.; GLUCOSE,POINT OF CARE 293 MG/DL (70-110)
[2024-09-16 11:08] VITALS: BP 131/71; PULSE 111; RESP 16; O2SAT 98
[2024-09-16 12:05] LABS: GLUCOMETER DEV NAME(LOC) BV2S.; GLUCOSE,POINT OF CARE 262 MG/DL (70-110)
[2024-09-16 17:40] LABS: GLUCOMETER DEV NAME(LOC) BV2S.; GLUCOSE,POINT OF CARE 148 MG/DL (70-110)
[2024-09-16] MEDS: HALOPERIDOL 5 MG TABLET PO PRN (20:35)
[2024-09-16 21:09] VITALS: BP 129/74; PULSE 94; RESP 18; TEMP 97.4; O2SAT 96
[2024-09-16 21:55] VITALS: BP 129/74; PULSE 94; RESP 16; TEMP 97.4; O2SAT 94
[2024-09-16 22:11] LABS: GLUCOMETER DEV NAME(LOC) BV2S.; GLUCOSE,POINT OF CARE 77 MG/DL (70-110)
[2024-09-17 07:25] LABS: GLUCOMETER DEV NAME(LOC) BV2S.; GLUCOSE,POINT OF CARE 140 MG/DL (70-110)
[2024-09-17 09:26] VITALS: BP 152/91; PULSE 108; RESP 18; TEMP 97.2; O2SAT 95
[2024-09-17 13:05] LABS: GLUCOMETER DEV NAME(LOC) BV2S.; GLUCOSE,POINT OF CARE 230 MG/DL (70-110)
[2024-09-17] MEDS: LORazepam 2 MG TABLET PO PRN (16:26)
[2024-09-17 16:41] LABS: GLUCOMETER DEV NAME(LOC) BV2S.; GLUCOSE,POINT OF CARE 211 MG/DL (70-110)
[2024-09-17 22:01] LABS: GLUCOMETER DEV NAME(LOC) BV2S.; GLUCOSE,POINT OF CARE 217 MG/DL (70-110)
[2024-09-17 22:15] VITALS: BP 153/87; PULSE 89; RESP 16; TEMP 97.7; O2SAT 96
[2024-09-18 06:26] LABS: GLUCOMETER DEV NAME(LOC) BV2S.; GLUCOSE,POINT OF CARE 150 MG/DL (70-110)
[2024-09-18 08:51] VITALS: BP 131/81; PULSE 96; RESP 17; TEMP 95.9; O2SAT 99
[2024-09-18 11:56] LABS: GLUCOMETER DEV NAME(LOC) BV2S.; GLUCOSE,POINT OF CARE 227 MG/DL (70-110)
[2024-09-18 16:46] LABS: GLUCOMETER DEV NAME(LOC) BV2S.; GLUCOSE,POINT OF CARE 234 MG/DL (70-110)
[2024-09-18 20:47] VITALS: BP 146/90; PULSE 87; RESP 18; TEMP 96; O2SAT 96
[2024-09-18 20:55] LABS: GLUCOMETER DEV NAME(LOC) BV2S.; GLUCOSE,POINT OF CARE 176 MG/DL (70-110)
[2024-09-19 11:29] VITALS: BP 149/91; PULSE 99; RESP 18; TEMP 97; O2SAT 96
[2024-09-19 11:51] LABS: GLUCOMETER DEV NAME(LOC) BV2S.; GLUCOSE,POINT OF CARE 183 MG/DL (70-110)
[2024-09-19 17:00] LABS: GLUCOMETER DEV NAME(LOC) BV2S.; GLUCOSE,POINT OF CARE 236 MG/DL (70-110)
[2024-09-19 21:55] VITALS: BP 151/91; PULSE 96; RESP 16; TEMP 97.8; O2SAT 98
[2024-09-19 22:30] LABS: GLUCOMETER DEV NAME(LOC) BV2S.; GLUCOSE,POINT OF CARE 167 MG/DL (70-110)
[2024-09-20 09:05] VITALS: BP 156/96; PULSE 100; RESP 18; TEMP 98.3; O2SAT 97
[2024-09-20 17:36] LABS: GLUCOMETER DEV NAME(LOC) BV2S.; GLUCOSE,POINT OF CARE 216 MG/DL (70-110)
[2024-09-20 17:36] LABS: GLUCOMETER DEV NAME(LOC) BV2S.; GLUCOSE,POINT OF CARE 287 MG/DL (70-110)
[2024-09-20 20:22] VITALS: BP 156/90; PULSE 99; RESP 18; TEMP 97.9; O2SAT 96
[2024-09-20 21:56] LABS: GLUCOMETER DEV NAME(LOC) BV2S.; GLUCOSE,POINT OF CARE 237 MG/DL (70-110)
[2024-09-21 06:26] LABS: GLUCOMETER DEV NAME(LOC) BV2S.; GLUCOSE,POINT OF CARE 176 MG/DL (70-110)
[2024-09-21 08:30] VITALS: BP 130/82; PULSE 96; RESP 18; TEMP 97.4; O2SAT 98
[2024-09-21 11:56] LABS: GLUCOMETER DEV NAME(LOC) BV2S.; GLUCOSE,POINT OF CARE 185 MG/DL (70-110)
[2024-09-21 17:10] LABS: GLUCOMETER DEV NAME(LOC) BV2S.; GLUCOSE,POINT OF CARE 196 MG/DL (70-110)
[2024-09-21 20:26] VITALS: BP 156/80; PULSE 81; RESP 16; TEMP 97.3; O2SAT 98
[2024-09-21 20:41] LABS: GLUCOMETER DEV NAME(LOC) BV2S.; GLUCOSE,POINT OF CARE 213 MG/DL (70-110)
[2024-09-22 06:30] LABS: GLUCOMETER DEV NAME(LOC) BV2S.; GLUCOSE,POINT OF CARE 127 MG/DL (70-110)
[2024-09-22 08:46] LABS: GLUCOMETER DEV NAME(LOC) BV2S.; GLUCOSE,POINT OF CARE 140 MG/DL (70-110)
[2024-09-22 09:00] VITALS: BP 128/86; PULSE 120; RESP 18; TEMP 97.4; O2SAT 96
[2024-09-22 11:40] LABS: GLUCOMETER DEV NAME(LOC) BV2S.; GLUCOSE,POINT OF CARE 220 MG/DL (70-110)
[2024-09-22 12:53] VITALS: BP 136/98; PULSE 100; RESP 18; O2SAT 95
[2024-09-22 16:41] LABS: GLUCOMETER DEV NAME(LOC) BV2S.; GLUCOSE,POINT OF CARE 195 MG/DL (70-110)
[2024-09-22 20:52] VITALS: BP 150/90; PULSE 92; RESP 18; TEMP 97.4; O2SAT 96
[2024-09-22 21:16] LABS: GLUCOMETER DEV NAME(LOC) BV2S.; GLUCOSE,POINT OF CARE 107 MG/DL (70-110)
[2024-09-23 08:18] VITALS: RESP 18
[2024-09-23 11:41] LABS: GLUCOMETER DEV NAME(LOC) BV2S.; GLUCOSE,POINT OF CARE 203 MG/DL (70-110)
[2024-09-23 11:41] LABS: GLUCOMETER DEV NAME(LOC) BV2S.; GLUCOSE,POINT OF CARE 101 MG/DL (70-110)
[2024-09-23 16:36] LABS: GLUCOMETER DEV NAME(LOC) BV2S.; GLUCOSE,POINT OF CARE 187 MG/DL (70-110)
[2024-09-23] MEDS: ZOLPIDEM TARTRATE 10 MG TABLET PO PRN (20:24)
[2024-09-23 20:50] VITALS: BP 153/91; PULSE 85; RESP 17; TEMP 97.6; O2SAT 98
[2024-09-23 20:50] LABS: GLUCOMETER DEV NAME(LOC) BV2S.; GLUCOSE,POINT OF CARE 175 MG/DL (70-110)
[2024-09-23 20:51] VITALS: BP 153/96; PULSE 98; RESP 18; TEMP 97; O2SAT 98
[2024-09-24 07:06] LABS: GLUCOMETER DEV NAME(LOC) BV2S.; GLUCOSE,POINT OF CARE 141 MG/DL (70-110)
[2024-09-24 08:13] VITALS: BP 121/76; PULSE 125; RESP 18; TEMP 96.5; O2SAT 95
[2024-09-24 14:16] VITALS: PULSE 97; RESP 18
[2024-09-24 17:01] LABS: GLUCOMETER DEV NAME(LOC) BV2S.; GLUCOSE,POINT OF CARE 235 MG/DL (70-110)
[2024-09-24 20:18] VITALS: BP 144/90; PULSE 65; RESP 18; TEMP 97.5; O2SAT 97
[2024-09-24 23:35] LABS: GLUCOMETER DEV NAME(LOC) BV2S.; GLUCOSE,POINT OF CARE 157 MG/DL (70-110)
[2024-09-25 07:45] LABS: GLUCOMETER DEV NAME(LOC) BV2S.; GLUCOSE,POINT OF CARE 139 MG/DL (70-110)
[2024-09-25 09:14] VITALS: BP 157/94; PULSE 96; RESP 18; TEMP 97.2; O2SAT 95
[2024-09-25 09:56] LABS: GLUCOMETER DEV NAME(LOC) BV2S.; GLUCOSE,POINT OF CARE 149 MG/DL (70-110)
[2024-09-25 12:30] LABS: GLUCOMETER DEV NAME(LOC) BV2S.; GLUCOSE,POINT OF CARE 256 MG/DL (70-110)
[2024-09-25 15:53] VITALS: BP 146/85; PULSE 110; RESP 18; TEMP 97.2; O2SAT 97
[2024-09-25 17:25] LABS: GLUCOMETER DEV NAME(LOC) BV2S.; GLUCOSE,POINT OF CARE 189 MG/DL (70-110)
[2024-09-25 20:08] VITALS: BP 146/85; PULSE 111; RESP 18; TEMP 97.2; O2SAT 97
[2024-09-25 20:50] LABS: GLUCOMETER DEV NAME(LOC) BV2S.; GLUCOSE,POINT OF CARE 227 MG/DL (70-110)
[2024-09-26 08:35] VITALS: BP 140/82; PULSE 95; RESP 18; TEMP 97.7; O2SAT 95
[2024-09-26 09:26] LABS: GLUCOMETER DEV NAME(LOC) BV2S.; GLUCOSE,POINT OF CARE 244 MG/DL (70-110)
[2024-09-26 09:26] LABS: GLUCOMETER DEV NAME(LOC) BV2S.; GLUCOSE,POINT OF CARE 123 MG/DL (70-110)
[2024-09-26] MEDS ORDERED: DIVA-112 PO (13:27)
[2024-09-26] MEDS ORDERED: RISP-31 PO (13:29)
[2024-09-26 17:41] LABS: GLUCOMETER DEV NAME(LOC) BV2S.; GLUCOSE,POINT OF CARE 296 MG/DL (70-110)
== END 2024-09-26 14:46 | disposition home or self-care (01) | DRG 750 ==
LOC: EMS 20:37 → B2S 09-13 03:06
PROVIDERS: ADMIT Psychiatry & Neurology Psychiatry; ATTEND Psychiatry & Neurology Psychiatry
PROC: GZ52ZZZ Individual Psychotherapy, Cognitive (ICD-10-PCS; principal; 2024-09-14)
DX: F20.9 Schizophrenia, unspecified (principal); E11.9 Type 2 diabetes mellitus without complications; D72.829 Elevated white blood cell count, unspecified; E87.6 Hypokalemia; E78.5 Hyperlipidemia, unspecified; F17.210 Nicotine dependence, cigarettes, uncomplicated; I10 Essential (primary) hypertension; J31.0 Chronic rhinitis; N40.0 Benign prostatic hyperplasia without lower urinary tract symptoms; Z20.822 Contact with and (suspected) exposure to COVID-19; K21.9 Gastro-esophageal reflux disease without esophagitis; F19.10 Other psychoactive substance abuse, uncomplicated; Z56.0 Unemployment, unspecified; Z79.899 Other long term (current) drug therapy
CPT/HCPCS: 80048; 80053; 80164; 80307; 81001; 82962; 83036; 84439; 84443; 85025; 87081; 87086; 87324; 87449; 99285; G0480; J1815